=== PATIENT | female | born 1990 | race Hispanic/Latino ===

== ENCOUNTER 2023-05-17 09:35 | Day surgery (SDC) | payer BC ==
[2023-05-15 14:54] LABS: BASOPHILS # (AUTO) 0.05 K/uL (0.00-0.20); BASOPHILS % (AUTO) 0.7 % (0.0-5.0); EOSINOPHILS # (AUTO) 0.07 K/uL (0.00-0.70); HEMATOCRIT 38.3 % (36-48); IMMATURE GRANULOCYTE ABSOLUTE 0.04 K/uL (0-1); LYMPHOCYTES # (AUTO) 1.9 K/uL (1.0-4.8); LYMPHOCYTES % (AUTO) 27.4 % (21.0-51.0); MEAN CORPUSCULAR HGB CONC 33.2 g/dL (32.0-36.0); MEAN CORPUSCULAR VOLUME 99.5 fL (79-99); MONOCYTES # (AUTO) 0.5 K/uL (0.1-1.0); NEUTROPHILS # (AUTO) 4.2 K/uL (1.8-7.7); NEUTROPHILS % (AUTO) 62.3 % (40.0-77.0); PLATELET COUNT (AUTO) 180 K/uL (130-400); RED BLOOD CELL COUNT(AUTO) 3.85 MIL/uL (4.00-5.50); WHITE BLOOD COUNT (AUTO) 6.8 K/uL (4.8-10.8)
[2023-05-15 15:17] VITALS: BP 110/53; PULSE 69; RESP 13
[~2023-05-17] VITALS: Ht 172.7 cm; Wt 78.7 kg
[2023-05-17] VITALS (19 sets, daily range): BP systolic 91–120; BP diastolic 40–74; PULSE 57–87; RESP 12–16
[~2023-05-17 09:35] MED LIST: FISH1CAP63 PO; MULT200T12 PO; [UNRECOGNIZED DRUG - CODE] PO
[2023-05-17] MEDS ORDERED: ONDANSETRON 4MG INJ ONE (09:36)
[2023-05-17] MEDS ORDERED: LIDOCAINE PF 100MG/5ML (2%) SYRINGE 5ML ONE (09:36)
[2023-05-17] MEDS ORDERED: DEXAMETHASONE SOD PHOSPHATE 10MG/ML 1ML VIAL ONE (09:36)
[2023-05-17] MEDS ORDERED: PROPOFOL 10 MG/ML 20ML VIAL IV ONE (09:36)
[2023-05-17] MEDS ORDERED: MIDAZOLAM HCL 1 MG/ML 2ML VIAL ONE (09:40)
[2023-05-17] MEDS ORDERED: FENTANYL CITRATE PF 50 MCG/1 ML 5ML AMP IV ONE (09:40)
[2023-05-17] MEDS ORDERED: CEFAZOLIN SODIUM 2 GM VIAL ONE (09:58)
[2023-05-17] MEDS ORDERED: LACTATED RINGERS 1000ML 1,000 ML IV ONE (09:58)
[2023-05-17] MEDS ORDERED: FENTANYL CITRATE PF 50 MCG/1 ML 2ML VIAL ONE (10:48)
[2023-05-17] MEDS ORDERED: STRONG IODINE SOLN 14ML BOTTLE ONE (11:20)
[2023-05-17] MEDS ORDERED: FERRIC SUBSULFATE ML TP SCH (11:30)
[2023-05-17] MEDS ORDERED: MEPERIDINE-PF 25 MG/ML SYG ONE (12:04)
[2023-05-17] MEDS ORDERED: KETOROLAC 30MG VIAL (30MG/ML) ONE (13:00)
== END 2023-05-17 14:05 | disposition home or self-care (01) ==
LOC: DAH 09:35
PROVIDERS: ATTEND Obstetrics & Gynecology
DX: D06.0 Carcinoma in situ of endocervix (principal); D06.7 Carcinoma in situ of other parts of cervix; F41.9 Anxiety disorder, unspecified
CPT/HCPCS: 84703; 85025; 86850; 86900; 86901; 36415; 57520; 88305; A6260; A4663; A4351; C1769; J7120; J3010 ×2; J1100; J2001; J2250; J2704; J2405; J1885; J2175; J0690; A4649; A4215; A4223; A4222; A4221; A4510; J3490